=== PATIENT | male | born 1965 | race African-American/Black ===

== ENCOUNTER 2018-06-16 22:06 | Observation (INO) | payer SELFPAY ==
[2018-06-16 22:36] LABS: PTT 33.8 SEC (22.9-36.1); Prothrombin Time 13.6 SEC (12.0-14.7)
[2018-06-16 22:38] LABS: #Basophils 0.1 thou/uL (0.0-0.2); #Eosinphils 0.2 thou/uL (0.0-0.7); #Lymphocytes 3.1 thou/uL (1.20-3.40); #Monocytes 0.6 thou/uL (0.11-0.59); #Neutrophils 3.3 thou/uL (1.40-6.50); %Eosinophils 2.8 % (0.0-10.0); %Lymphocytes 42.6 % (21.0-51.0); %Monocytes 8.7 % (0.0-10.0); Hemoglobin 14.5 g/dL (14.0-18.0); Mean Corpuscular HGB CONC 32.9 g/dL (32.0-36.0); Mean Corpuscular Volume 94.2 fL (78.0-98.0); Mean Platelet Volume 9.6 fL (7.4-10.4); Platelet Count 182 thou/uL (130-400); RBC Distribution Width 11.5 % (11.5-14.5); Red Blood Cell (RBC) Count 4.68 mill/uL (4.70-6.10); White Blood Cell (WBC) Count 7.3 thou/uL (4.8-10.8)
--- NOTE | 2018-06-16 22:46 | CT ---
CT OF BRAIN PERFORMED WITHOUT CONTRAST ENHANCEMENT: 06/16/18 HISTORY: Right arm numbness. Stroke alert. Ventricular and cisternal system is within normal limits. There is no signs of intracerebral hemorrha ge or extra-axial fluid collections. Mastoid air cells and visualized sinuses are clear. IMPRESSION: No acute intracranial abnormalities. Findings telephoned to Dr. Terrell at 2225 hours. POS: [facility]
[2018-06-16 22:49] LABS: ALT (SGPT) 14 U/L (8-55); AST (SGOT) 29 U/L (5-34); Albumin 4.1 g/dL (3.5-5.0); Alkaline Phosphatase 73 U/L (40-150); Anion Gap 13 mmol/L (10-20); BUN (Urea Nitrogen) 12 mg/dL (8.4-25.7); Calc. Creatinine Clearance 0 mL/min (70-130); Calcium 9.5 mg/dL (7.8-10.44); Carbon Dioxide 28 mmol/L (22-29); Chloride 101 mmol/L (98-107); Estimated GFR-MDRD 79; Globulin 3.2 g/dL (2.4-3.5); Glucose 75 mg/dL (70-105); Potassium 3.9 mmol/L (3.5-5.1); Protein, Total 7.3 g/dL (6.0-8.3); Sodium 138 mmol/L (136-145)
--- NOTE | 2018-06-16 23:04 | CT ---
CT ANGIO OF BRAIN AND NECK PERFORMED WITH INTRAVENOUS CONTRAST ENHANCEMENT WITH 3D RECONSTRUCTIONS: 06/16/18 HISTORY: Right arm numbness. The thyroid gland shows what appears to be a possible right lobe thyroid nodule. Lack of fat within t he neck degrades detail. I do not appreciate any significant adenopathy or any signs of any mass. Par apharyngeal spaces are clear. The aortic arch is not included on this examination. The vertebral arteries appear codominant. The ba silar artery and posterior cerebral arteries are normal in appearance. On the left side, there is greater than 50% narrowing of the left external carotid artery at its orig in. There is no significant stenosis of the left internal carotid artery. On the right side, no significant narrowing of the internal or external carotid arteries by NASCET cr iteria. Less than 40% narrowing of the external carotid. Intracranially, the anterior and middle cerebral arteries and their branches appear unremarkable. The re is a patent hoh of [place] present. IMPRESSION: 1. No evidence of any significant internal carotid stenosis. 2. No intracranial abnormalities noted. POS: [facility]
[2018-06-17] MEDS ORDERED: HYDROcodone/Acetaminophen 10/325 mg Tablet ONE (00:56)
[2018-06-17] MEDS ORDERED: HYDROcodone/Acetaminophen 10/325 mg Tablet PO PRN (01:19)
[2018-06-17 01:59] VITALS: BMI 19.5
[2018-06-17] MEDS ORDERED: Acetaminophen 325 MG TAB PO PRN (06:32)
--- NOTE | 2018-06-17 09:33 | RAD ---
RIGHT SHOULDER THREE VIEWS: 06/17/2018 HISTORY: Injury. COMPARISON: None. FINDINGS: No widening of the acromioclavicular or coracoclavicular interspace. No displaced fracture or disloc ation. IMPRESSION: No acute findings. POS: [facility]
--- NOTE | 2018-06-17 11:58 | MRI ---
MRI BRAIN WITHOUT CONTRAST: Date: 06/17/18 HISTORY: Right arm numbness, TIA, right-sided paresthesia; numbness and tingling in the right arm yesterday, w hich has now resolved. FINDINGS: Correlation is made with the CT brain from previous day. No restricted diffusion is seen. No evidence of infarct, hemorrhage, midline shift, or abnormal extra -axial fluid collections are noted. There are a few tiny foci of T2 prolongation in the periventricul ar white matter consistent with mild chronic small vessel ischemic disease. The ventricular size is n ormal and the basilar cisterns are patent. Visualized paranasal sinuses and mastoid air cells are wel l aerated. IMPRESSION: No evidence of acute intracranial process. POS: [facility]
[2018-06-17 12:11] VITALS: BP 130/68; TEMP 97.4
--- NOTE | 2018-06-17 13:55 | HP ---
CHIEF COMPLAINT: Right-sided shoulder and leg pain. HISTORY OF PRESENT ILLNESS: This patient is a 53-year-old male, who presented via the emergency department. The patient initially was reporting stroke symptoms, specifically being some numbness on the right side including his arm and leg for about an hour prior to arrival. The patient also reported in the emergency department that he was having pain in the right shoulder. EMS reported the stroke screen was negative and talked to the patient. He reports that he had had an episode about a year ago and when he had some numbness on the right side of his body including his arm and leg. His leg completely resolved, but he reports he still has some occasional numbness in the right upper extremity. The patient reports that for 2 weeks he has had pain in his right pretibial area just above the ankle, which makes it difficult to walk. He has trouble first thing in the morning when he gets up and around, but as he moves around, it does tend to get better. He also has pain in his shoulder, which he describes in two different places, one being on the superior aspect and one being on the area just below the deltoid. 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 The patient states the pain becomes fairly severe at times, specifically in the shoulder. He has not taken any [id number] medications to relieve it. He believes he is occasionally having some weakness in his right upper extremity associated with his shoulder pain. Note, the patient did not undergo any sort of evaluation when he had his episode a year ago, but refers to it as having had a stroke. He denies any other neurologic symptoms including headache, slurred speech, or symptoms affecting any other portion of his body. REVIEW OF SYSTEMS: All systems were reviewed, and all pertinent positives and negatives as mentioned in the history of present illness. PAST MEDICAL HISTORY: The patient reported this episode of having a "stroke" one year ago, although his symptoms essentially resolved and he never had any evaluation. He carries no other chronic diagnoses and takes no treatments. PAST SURGICAL HISTORY: None. SOCIAL HISTORY: The patient drinks socially. He smokes half a pack of cigarettes per day. He is , but . He is full code. Did not identify surrogate decision maker. ALLERGIES: NONE. MEDICATIONS: None. PHYSICAL EXAMINATION: VITAL SIGNS: BP 131/72, pulse 59, respirations 18, temperature 98.8, and O2 saturation 98% on room air. GENERAL APPEARANCE: Age-appropriate male, in no distress. He is awake, alert, oriented, pleasant, and cooperative. HEENT: PERRL. No OP lesions. NECK: Supple and symmetric. No lymphadenopathy, JVD, or carotid bruits. HEART: Regular rate and rhythm without murmurs, gallops, or rubs. LUNGS: Clear to auscultation bilaterally with good chest wall expansion and air exchange. ABDOMEN: Soft, nontender, and nondistended. Positive bowel sounds. No masses. No organomegaly. EXTREMITIES: Warm and dry. No cyanosis, clubbing, or edema. NEUROLOGICAL: The patient appears to be intact. He is normal cognitively. He has normal speech. He is moving all extremities normally and spontaneously. 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 He has slight decreased dorsiflexion of the right foot, but that is secondary to pain in the pretibial tendon area. MUSCULOSKELETAL: There is tenderness to palpation in the flexor tendon and in the dorsiflexor tendons of the right lower extremity distally. There is slight edema in that area and tenderness to palpation and increased pain with the dorsiflexion. There is also some tenderness to palpation just below the deltoid laterally at the right upper extremity, but otherwise appears to be anatomically normal and has a full range of motion. LABORATORY DATA: White count 7.3, hemoglobin 14.5, platelets 182. INR 1.0, PTT 33.8, sodium 138, potassium 3.9, chloride 101, CO2 is 28, BUN 12, creatinine 1.18, glucose 75, total bilirubin 1.0, AST 29, ALT 14. Troponin less than 0.01. Albumin 4.1. RADIOGRAPHIC DATA: CTA head and neck is normal. IMPRESSION AND PLAN: 1. Possible transient ischemic attack. The patient has very vague symptoms and difficult to know what these may represent. It appears that he has some musculoskeletal symptoms in the right lower extremity and right shoulder, which he is relating to these potential TIA symptoms. He has had the negative CTA head and neck, I will go ahead and get an MRI just to rule this out definitively. 2. Right shoulder pain appears to be musculoskeletal. X-ray obtained. We will ask Physical Therapy to see him. May benefit from some anti-inflammatories. 3. Right lower extremity tendinitis. Again, anti-inflammatories and physical therapy. 4. History of tobacco abuse, the patient's primary risk factor. The patient is counseled regarding the need for smoking cessation. Job ID: [id number]
--- NOTE | 2018-06-20 22:43 | DIS ---
DATE OF ADMISSION: 06/16/2018 DATE OF DISCHARGE: 06/17/2018 PRIMARY CARE PHYSICIAN: None. CONSULTANTS: None. DISCHARGE DIAGNOSES: 1. Right shoulder, right lower leg pain, acute on chronic. 2. Tendonitis to right shoulder, right lower leg. HOSPITAL COURSE: Mr. Block is a 53-year-old male who presented to the emergency room on 06/16/2018 reporting of right-sided numbness, tingling x1 hour. Reports mostly in the right shoulder and right lower leg. Reports that it started about an hour prior to arrival. Reports he had similar symptoms several years ago and they resolved on their own. 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 Reports that when he was at home yesterday, he was trying to lie down, but his shoulder started to hurt and so he could not lay down. He also reported that his right leg has been hurting for the last three or four days. Reports that it has been swollen and sore. The patient underwent a CT scan of the brain in the emergency room and also a CTA of the neck and brain which were negative. The patient based on symptoms and history, was admitted to the observation unit for further evaluation. The patient underwent an MRI of the brain which was negative. The patient's vital signs remained stable. Lab work unremarkable. The patient discharged home on nonsteroidal medication. REVIEW OF SYSTEMS: The patient still reports some mild pain to his right shoulder with movement. Reports his right lower leg is still a little bit tender. Has full range of motion. Denies any weakness per se. Denies any numbness or tingling today. Denies a headache, chest pain, palpitations, shortness of breath, abdominal pain, nausea, vomiting, or diarrhea. All other systems were reviewed and are negative unless mentioned above. PHYSICAL EXAMINATION: CONSTITUTIONAL: Patient appears nontoxic. Patient appears pain-free. Patient is alert and oriented to person, place, and time. HEENT: Head is atraumatic, normocephalic. Eyes, eyelids are normal to inspection. Pupils are equally round, and reactive to light. Extraocular muscles are intact. No nystagmus. ENT, mouth exam is normal. Mucous membranes are moist. NECK: Trachea is midline. Normal range of motion. RESPIRATORY: Chest breath sounds are clear. No findings of respiratory distress. CARDIOVASCULAR: Regular rate and rhythm. No abnormal heart sounds are heard. ABDOMEN: Nontender on palpation. Bowel sounds are heard. BACK: Normal inspection. Normal range of motion. No tenderness. EXTREMITIES: Upper extremity, normal range of motion. Motor strength is normal. Sensation is intact. Radial pulses are normal. Does express tenderness with rotation of right shoulder. Otherwise, strength is intact. Lower extremity, inspection is normal. Range of motion is normal. Motor strength is normal. Sensation is intact. Pedal pulses are normal bilaterally. NEUROLOGIC: Patient is oriented to person, place, and time. Speech is normal. Gait is normal. No focal motor or sensory deficits. SKIN: Warm, dry, and normal in color. PSYCH: Has a normal affect. MEDICATIONS: Patient will be discharged with Tylenol and ibuprofen. 1. Ibuprofen 600 mg p.o. q.6 hours as needed for pain. 2. Tylenol 650 mg p.o. q.4 hours for pain. ALLERGIES: NO KNOWN DRUG ALLERGIES. DISCHARGE CONDITION: Stable. Patient will be discharged home. Patient is to follow up with [facility] within the next week. Job ID: [id number]
--- NOTE | 2018-06-23 15:34 | EKG ---
Test Reason : Blood Pressure : / mmHG Vent. Rate : 060 BPM Atrial Rate : 060 BPM P-R Int : 134 ms QRS Dur : 092 ms QT Int : 418 ms P-R-T Axes : 087 073 066 degrees QTc Int : 418 ms Normal sinus rhythm Biatrial enlargement Cannot rule out Anterior infarct , age undetermined Abnormal ECG Confirmed by ARISTEO TREVINO ([id number]), assistant film editor SHAHBAZ HARRIS ([id number]) on 06/23/2018 3:34:43 PM Referred By: Confirmed By:ARISTEO TREVINO
== END 2018-06-17 13:52 | disposition home or self-care (01) ==
LOC: ERS 22:06 → 2SE 23:50
PROVIDERS: ADMIT Internal Medicine; ATTEND Internal Medicine
DX: M25.511 Pain in right shoulder (principal); M79.661 Pain in right lower leg; G89.29 Other chronic pain; R20.0 Anesthesia of skin; F17.210 Nicotine dependence, cigarettes, uncomplicated; M77.9 Enthesopathy, unspecified
CPT/HCPCS: 36415; 36416; 70450; 70496; 70498; 70551; 80053; 84484; 85025; 85610; 85730; 90471; 90686; 90732; 93005; 94760; G0008; G0009; G0378

== ENCOUNTER 2018-08-03 23:02 | Emergency (ER) | payer SELFPAY ==
[2018-08-03] MEDS ORDERED: Ibuprofen 800 MG TAB ONE (23:34)
== END 2018-08-03 23:47 | disposition home or self-care (01) ==
LOC: ERS 23:02
DX: G89.29 Other chronic pain (principal); M25.511 Pain in right shoulder; F32.9 Major depressive disorder, single episode, unspecified; F17.210 Nicotine dependence, cigarettes, uncomplicated
CPT/HCPCS: 99283

== ENCOUNTER 2023-02-24 22:43 | Inpatient (IN) | payer BC, SELFPAY ==
[~2023-02-24 22:43] MED LIST: Iopamidol 300 61% 100 ML VIAL FS ONE; Iopamidol 370 76% 100 ML VIAL ONE
[2023-02-24] MEDS ORDERED: fentaNYL 50 mcg/mL 1 mL Vial ONE (22:58)
[2023-02-24] MEDS ORDERED: Heparin 10,000 UNITS/ 10 ML VIAL ONE (23:00)
[2023-02-24] MEDS ORDERED: Lidocaine 1% (PF) 30 ML VIAL ONE (23:00)
[2023-02-24] MEDS ORDERED: Heparin 25,000 UNITS/D5W 500 ml bag ONE (23:00)
[2023-02-24] MEDS ORDERED: Nitroglycerin 50 MG/250 ML BOT 250 ML ONE (23:01)
[2023-02-24] MEDS ORDERED: Atropine Sulfate 1 mg/10 ml Syringe ONE (23:01)
[2023-02-24 23:07] LABS: #Monocytes 1.1 thou/uL (0.11-0.59); #Neutrophils 5.7 thou/uL (1.40-6.50); %Basophils 0.3 % (0.0-1.0); %Eosinophils 0.1 % (0.0-10.0); %Monocytes 9.1 % (0.0-10.0); %Neutrophils 47.2 % (42.0-75.0); Hemoglobin 14.7 g/dL (14.0-18.0); Mean Corpuscular HGB CONC 31.3 g/dL (32.0-36.0); Mean Corpuscular Hemoglobin 29.6 pg (27.0-31.0); Mean Corpuscular Volume 94.6 fl (78.0-98.0); Mean Platelet Volume 11.6 fL (7.4-10.4); Platelet Count 159 10x3/uL (130-400); RBC Distribution Width 13.8 % (11.5-14.5); Red Blood Cell (RBC) Count 4.97 mill/uL (4.70-6.10)
[2023-02-24 23:08] LABS: Manual Diff?? YES
[2023-02-24 23:20] LABS: PTT 26.4 sec (22.9-36.1); Prothrombin Time 13.8 sec (12.0-14.7)
[2023-02-24 23:28] LABS: Burr Cells MODERATE= 6-15 cells HPF (0-1); CellaVision Operator ID lab.sh2; Large Platelets 11.5 % (0-5); Lymphocytes 38 % (21-51); Macrocytosis SLIGHT = 6-15 cells HPF (0-5); Monocytes 7 % (0-10); Neutrophil 55 % (42-75); Ovalocytes SLIGHT = 2-5 cells HPF (0-1); Platelet Adequacy Comment Platelets Normal; Poikilocytosis MODERATE=16-30 cells HPF (0-5); Smudge Cells 15.6 %; Total Cell Count 96; Vacuoles SLIGHT
[2023-02-24 23:31] LABS: Chloride 104 mmol/L (98-107); Potassium 4.7 mmol/L (3.5-5.1); Sodium 133 mmol/L (136-145)
[2023-02-24 23:32] LABS: Calcium 8.7 mg/dL (7.8-10.44)
[2023-02-24 23:33] LABS: Globulin 3.5 g/dL (2.4-3.5); Glucose 81 mg/dL (70-105); Protein, Total 6.5 g/dL (6.0-8.3)
[2023-02-24 23:34] LABS: Bilirubin, Total 0.5 mg/dL (0.2-1.2); Carbon Dioxide 16 mmol/L (22-29)
[2023-02-24 23:35] LABS: Alkaline Phosphatase 50 U/L (40-110)
[2023-02-24 23:36] LABS: Calc. Creatinine Clearance 0 mL/min (70-130); Estimated GFR 71
[2023-02-24 23:37] LABS: BUN (Urea Nitrogen) 14 mg/dL (8.4-25.7)
[2023-02-24 23:38] LABS: ALT (SGPT) 33 U/L (8-55); AST (SGOT) 49 U/L (5-34)
[2023-02-24 23:39] LABS: Lipase 11 U/L (8-78)
[2023-02-24 23:43] LABS: Troponin I 0.011 ng/mL (< 0.028)
[2023-02-25 00:18] LABS: Anion Gap 22 mmol/L (10-20)
[2023-02-25] MEDS ORDERED: Morphine 2 MG/ML VIAL SLOW IVP PRN (00:19)
[2023-02-25] MEDS ORDERED: traMADol HCl 50 MG TAB PO PRN (00:19)
[2023-02-25] MEDS ORDERED: Sodium Chloride 0.9% 500 ML IV SCH (00:30)
[2023-02-25] MEDS ORDERED: Clopidogrel Bisulfate 300 MG TAB ONE (00:36)
[2023-02-25 00:55] VITALS: BMI 23.8
[2023-02-25 01:53] LABS: Troponin I 2.366 ng/mL (< 0.028)
[2023-02-25 07:44] LABS: Troponin I 11.391 ng/mL (< 0.028)
[2023-02-25] MEDS: Clopidogrel Bisulfate 75 MG TAB PO SCH (09:40)
[2023-02-25] MEDS: Aspirin Chewable 81 MG TAB PO SCH (09:40)
[2023-02-25] MEDS ORDERED: Atorvastatin Calcium 40 MG TAB PO SCH (21:00)
[2023-02-26 04:30] LABS: #Eosinphils 0.1 thou/uL (0.0-0.7); #Monocytes 0.7 thou/uL (0.11-0.59); #Neutrophils 2.8 thou/uL (1.40-6.50); %Basophils 0.3 % (0.0-1.0); %Eosinophils 1.3 % (0.0-10.0); %Lymphocytes 42.4 % (21.0-51.0); %Monocytes 10.7 % (0.0-10.0); Hematocrit 41.5 % (42.0-52.0); Hemoglobin 13.3 g/dL (14.0-18.0); Mean Corpuscular Hemoglobin 29.6 pg (27.0-31.0); Mean Corpuscular Volume 92.4 fl (78.0-98.0); Mean Platelet Volume 11.9 fL (7.4-10.4); Platelet Count 129 10x3/uL (130-400); RBC Distribution Width 14.2 % (11.5-14.5); Red Blood Cell (RBC) Count 4.49 mill/uL (4.70-6.10); White Blood Cell (WBC) Count 6.3 10x3/uL (4.8-10.8)
[2023-02-26 05:00] LABS: ALT (SGPT) 41 U/L (8-55); AST (SGOT) 50 U/L (5-34); Albumin 3.1 g/dL (3.5-5.0); Alkaline Phosphatase 52 U/L (40-110); Anion Gap 9 mmol/L (10-20); BUN (Urea Nitrogen) 10 mg/dL (8.4-25.7); Bilirubin, Total 0.2 mg/dL (0.2-1.2); Calc. Creatinine Clearance 95 mL/min (70-130); Calcium 8.3 mg/dL (7.8-10.44); Carbon Dioxide 21 mmol/L (22-29); Chloride 112 mmol/L (98-107); Estimated GFR 100; Globulin 2.2 g/dL (2.4-3.5); Glucose 120 mg/dL (70-105); Potassium 3.9 mmol/L (3.5-5.1); Protein, Total 5.3 g/dL (6.0-8.3); Sodium 138 mmol/L (136-145)
[2023-02-26] MEDS: Aspirin Chewable 81 MG TAB PO SCH (09:41)
[2023-02-26] MEDS: Clopidogrel Bisulfate 75 MG TAB PO SCH (09:41)
[2023-02-26] MEDS ORDERED: Lisinopril 2.5 MG TAB PO SCH (10:15)
[2023-02-26 17:18] VITALS: BP 100/58; TEMP 98
[2023-02-27] MEDS ORDERED: Lisinopril 2.5 MG TAB PO SCH (09:00)
== END 2023-02-26 14:34 | disposition home or self-care (01) | DRG 249 ==
LOC: ERS 22:43 → CCU 23:13 → CCL 23:13 → CCU 23:15 → 2NO 02-25 17:14
PROVIDERS: ADMIT Internal Medicine Cardiovascular Disease; ATTEND Internal Medicine Cardiovascular Disease
PROC: 02713EZ Dilation of Coronary Artery, Two Arteries with Two Intraluminal Devices, Percutaneous Approach (ICD-10-PCS; principal; 2023-02-24)
PROC: B2111ZZ Fluoroscopy of Multiple Coronary Arteries using Low Osmolar Contrast (ICD-10-PCS; 2023-02-24)
PROC: 4A023N7 Measurement of Cardiac Sampling and Pressure, Left Heart, Percutaneous Approach (ICD-10-PCS; 2023-02-24)
DX: I21.19 ST elevation (STEMI) myocardial infarction involving other coronary artery of inferior wall (principal); I95.9 Hypotension, unspecified; F17.210 Nicotine dependence, cigarettes, uncomplicated; F14.10 Cocaine abuse, uncomplicated; I25.10 Atherosclerotic heart disease of native coronary artery without angina pectoris; F19.10 Other psychoactive substance abuse, uncomplicated; Z71.51 Drug abuse counseling and surveillance of drug abuser; Z79.82 Long term (current) use of aspirin; Z82.49 Family history of ischemic heart disease and other diseases of the circulatory system; F32.A Depression, unspecified
CPT/HCPCS: 36415; 71045; 80053; 83690; 84484; 85025; 85347; 85610; 85730; 86850; 86900; 86901; 92941; 93005; 93010; 93306; 93454; 93798; 94760; 96365; 96374; 97139; C1769; C1887; J0461; J1644; J2001; J3010; J7030; Q9967

== ENCOUNTER 2023-02-28 10:23 | Emergency (ER) | payer BC ==
[2023-02-28 11:12] LABS: #Monocytes 0.8 thou/uL (0.11-0.59); #Neutrophils 3.3 thou/uL (1.40-6.50); %Basophils 0.2 % (0.0-1.0); %Eosinophils 0.5 % (0.0-10.0); %Lymphocytes 26.6 % (21.0-51.0); %Neutrophils 58.3 % (42.0-75.0); Hematocrit 42.5 % (42.0-52.0); Hemoglobin 13.2 g/dL (14.0-18.0); Mean Corpuscular HGB CONC 31.1 g/dL (32.0-36.0); Mean Corpuscular Hemoglobin 29.5 pg (27.0-31.0); Mean Corpuscular Volume 94.9 fl (78.0-98.0); Mean Platelet Volume 11.4 fL (7.4-10.4); Platelet Count 143 10x3/uL (130-400); RBC Distribution Width 13.8 % (11.5-14.5); Red Blood Cell (RBC) Count 4.48 mill/uL (4.70-6.10); White Blood Cell (WBC) Count 5.6 10x3/uL (4.8-10.8)
[2023-02-28 11:34] LABS: ALT (SGPT) 30 U/L (8-55); AST (SGOT) 25 U/L (5-34); Albumin 3.2 g/dL (3.5-5.0); Alkaline Phosphatase 55 U/L (40-110); Anion Gap 12 mmol/L (10-20); BUN (Urea Nitrogen) 8 mg/dL (8.4-25.7); Bilirubin, Total 0.3 mg/dL (0.2-1.2); Calc. Creatinine Clearance 0 mL/min (70-130); Calcium 8.8 mg/dL (7.8-10.44); Carbon Dioxide 25 mmol/L (22-29); Chloride 106 mmol/L (98-107); Estimated GFR 93; Glucose 113 mg/dL (70-105); Potassium 4.9 mmol/L (3.5-5.1); Protein, Total 5.2 g/dL (6.0-8.3); Sodium 138 mmol/L (136-145)
[2023-02-28 13:28] LABS: Troponin I 2.192 ng/mL (< 0.028)
== END 2023-02-28 14:57 | disposition home or self-care (01) ==
LOC: ERS 10:23
DX: F41.9 Anxiety disorder, unspecified (principal)
CPT/HCPCS: 36415; 71045; 80053; 84484; 85025; 93005

== ENCOUNTER 2023-03-29 22:36 | Observation (INO) | payer BC, SELFPAY ==
[2023-03-29] MEDS ORDERED: Aspirin 325 MG TAB ONE (23:34)
[2023-03-29 23:48] LABS: #Eosinphils 0.1 thou/uL (0.0-0.7); #Monocytes 0.6 thou/uL (0.11-0.59); #Neutrophils 3.4 thou/uL (1.40-6.50); %Basophils 0.2 % (0.0-1.0); %Eosinophils 1.4 % (0.0-10.0); %Lymphocytes 37.3 % (21.0-51.0); %Monocytes 9.3 % (0.0-10.0); %Neutrophils 51.6 % (42.0-75.0); Hematocrit 40.3 % (42.0-52.0); Hemoglobin 13.6 g/dL (14.0-18.0); Mean Corpuscular HGB CONC 33.7 g/dL (32.0-36.0); Mean Corpuscular Hemoglobin 29.8 pg (27.0-31.0); Mean Corpuscular Volume 88.2 fl (78.0-98.0); Platelet Count 154 10x3/uL (130-400); Red Blood Cell (RBC) Count 4.57 mill/uL (4.70-6.10); White Blood Cell (WBC) Count 6.6 10x3/uL (4.8-10.8)
[2023-03-29 23:51] LABS: Manual Diff?? YES
[2023-03-30 00:12] LABS: ALT (SGPT) 23 U/L (8-55); AST (SGOT) 27 U/L (5-34); Alkaline Phosphatase 79 U/L (40-110); Anion Gap 14 mmol/L (10-20); BUN (Urea Nitrogen) 11 mg/dL (8.4-25.7); Bilirubin, Total 0.5 mg/dL (0.2-1.2); Calc. Creatinine Clearance 0 mL/min (70-130); Carbon Dioxide 25 mmol/L (22-29); Chloride 101 mmol/L (98-107); Estimated GFR 86; Glucose 91 mg/dL (70-105); Lipase 23 U/L (8-78); Sodium 137 mmol/L (136-145)
[2023-03-30 00:15] LABS: CellaVision Operator ID LAB.CLH1; Eosinophils 1 % (0-10); Lymphocytes 38 % (21-51); Monocytes 8 % (0-10); Neutrophil 53 % (42-75); Platelet Adequacy Comment Platelets Normal; Total Cell Count 100
[2023-03-30 00:17] LABS: Troponin I Less than 0.010 ng/mL (< 0.028)
[2023-03-30] MEDS ORDERED: Potassium Chloride 20 MEQ TAB ONE (00:17)
[2023-03-30] MEDS ORDERED: Electrolyte Replacement Protocol 1 EACH FS SCH (02:00)
[2023-03-30 02:43] LABS: Troponin I Less than 0.010 ng/mL (< 0.028)
[2023-03-30 02:45] LABS: Magnesium 1.8 mg/dL (1.6-2.6)
[2023-03-30 04:20] VITALS: BMI 21.2
[2023-03-30 05:32] LABS: Anion Gap 14 mmol/L (10-20); BUN (Urea Nitrogen) 11 mg/dL (8.4-25.7); Calc. Creatinine Clearance 71 mL/min (70-130); Calcium 9.6 mg/dL (7.8-10.44); Carbon Dioxide 26 mmol/L (22-29); Chloride 102 mmol/L (98-107); Estimated GFR 80; Glucose 88 mg/dL (70-105); Potassium 3.7 mmol/L (3.5-5.1); Sodium 138 mmol/L (136-145)
[2023-03-30 05:34] LABS: Troponin I Less than 0.010 ng/mL (< 0.028)
[2023-03-30] MEDS ORDERED: Magnesium 2 GM/50 ML(in water) 2 GM in Premix Bag 1 BAG IVPB SCH (08:00)
[2023-03-30] MEDS: Lisinopril 2.5 MG TAB PO SCH (08:23)
[2023-03-30] MEDS: Aspirin Chewable 81 MG TAB PO SCH (08:23)
[2023-03-30] MEDS: Clopidogrel Bisulfate 75 MG TAB PO SCH (08:23)
[2023-03-30] MEDS: PARoxetine 20 MG TAB PO SCH (08:23)
[2023-03-30] MEDS ORDERED: Atorvastatin Calcium 40 MG TAB PO SCH (21:00)
[2023-03-30 21:38] LABS: Amphetamine Not Detected (NotDetected); Barbiturates Screen Not Detected (NotDetected); Benzodiazepine Screen Not Detected (NotDetected); Cocaine Metabolite Screen Detected (NotDetected); Methadone Not Detected (NotDetected); Methamphetamine Not Detected (NotDetected); Opiate Screen Not Detected (NotDetected); Oxycodone Screen Not Detected (NotDetected); Phencyclidine (PCP) Not Detected (NotDetected); THC/Cannabinoid Screen Not Detected (NotDetected); Tricyclic Screen Not Detected (NotDetected)
[2023-03-31] MEDS: Lisinopril 2.5 MG TAB PO SCH (08:02)
[2023-03-31] MEDS: Clopidogrel Bisulfate 75 MG TAB PO SCH (08:02)
[2023-03-31] MEDS: Aspirin Chewable 81 MG TAB PO SCH (08:02)
[2023-03-31] MEDS: PARoxetine 20 MG TAB PO SCH (08:02)
[2023-03-31 16:18] VITALS: BP 129/72; TEMP 98.4
== END 2023-03-31 16:55 | disposition home or self-care (01) ==
LOC: ERS 22:36 → 2SW 03-30 01:47
PROVIDERS: ADMIT Student in an Organized Health Care Education/Training Program; ATTEND Internal Medicine
DX: R07.9 Chest pain, unspecified (principal); I08.1 Rheumatic disorders of both mitral and tricuspid valves; F41.9 Anxiety disorder, unspecified; F17.210 Nicotine dependence, cigarettes, uncomplicated; I25.10 Atherosclerotic heart disease of native coronary artery without angina pectoris; F14.10 Cocaine abuse, uncomplicated; E87.6 Hypokalemia; I25.2 Old myocardial infarction; Z95.5 Presence of coronary angioplasty implant and graft; Z79.899 Other long term (current) drug therapy
CPT/HCPCS: 36415; 71045; 80048; 80053; 80306; 83690; 83735; 83880; 84484; 85025; 93005; 93306; 96365; G0378; J3475